=== PATIENT | female | born 1950 | race Caucasian/White ===

== ENCOUNTER 2023-11-30 02:38 | Emergency (ER) | payer MEDICARE, MEDICAID ==
[~2023-11-30] VITALS: Ht 175.3 cm; Wt 68.2 kg
[2023-11-30] MEDS ORDERED: haloperidol lactate 5mg/ml inj IM ONE (03:45)
[2023-11-30 03:48] LABS: BASOPHILS # (AUTO) 0.1 X10'3 (0-0.2); BASOPHILS % (AUTO) 0.9 % (0-1); EOSINOPHILS # (AUTO) 0.2 X10'3 (0-0.9); EOSINOPHILS % (AUTO) 2.2 % (0-6); HEMOGLOBIN 12.4 g/dl (12.0-16.0); LYMPHOCYTES # (AUTO) 2.7 X10'3 (1.1-4.8); LYMPHOCYTES % (AUTO) 23.6 % (21-51); MEAN CORPUSCULAR HEMOGLOBIN 30.8 PG (27.0-31.0); MEAN CORPUSCULAR HGB CONC 33.4 g/dL (33.0-36.5); MEAN CORPUSCULAR VOLUME 92.1 FL (78-98); MEAN PLATELET VOLUME 8.5 FL (7.4-10.4); MONOCYTES # (AUTO) 0.8 X10'3 (0-0.9); MONOCYTES % (AUTO) 6.7 % (2-12); NEUTROPHILS # (AUTO) 7.6 X10'3 (1.8-7.7); NEUTROPHILS % (AUTO) 66.6 % (42-75); PLATELET COUNT 224 X10'3 (140-440); RED BLOOD COUNT 4.02 X10'6 (4.20-5.60); RED CELL DISTRIBUTION WIDTH 12.9 % (11.5-14.5); WHITE BLOOD COUNT 11.5 X10'3 (4.5-11.0)
[2023-11-30 04:09] LABS: ALANINE AMINOTRANSFERASE 14 U/L (12-78); ALBUMIN/GLOBULIN RATIO 0.7 (1.1-1.5); ALKALINE PHOSPHATASE 84 IU/L (46-116); ANION GAP 10 (8-16); ASPARTATE AMINO TRANSFERASE 17 U/L (10-37); BILIRUBIN,TOTAL 0.5 MG/DL (0.1-1.0); BLOOD UREA NITROGEN 27 MG/DL (7-18); CALCIUM 8.7 MG/DL (8.5-10.1); CHLORIDE 99 MMOL/L (99-107); CREATININE 1.04 MG/DL (0.40-0.90); GLUCOSE 163 MG/DL (70-104); POTASSIUM 3.2 MMOL/L (3.5-5.1); SODIUM 137 MMOL/L (135-145); TOTAL CARBON DIOXIDE 28.1 MMOL/L (24-32); TOTAL PROTEIN 7.1 G/DL (6.4-8.2); eCRCL 49 ML/MIN; eGFR 52 ML/MIN
[2023-11-30 04:15] LABS: BILIRUBIN,URINE NEGATIVE (Neg); CLARITY,URINE CLOUDY (Clear); COLOR,URINE YELLOW (Yellow); GLUCOSE, URINE NEGATIVE (Neg); KETONES,URINE NEGATIVE (Neg); LEUKOCYTE ESTERASE ,URINE LARGE (Neg); NITRITES, URINE POSITIVE (Neg); OCCULT BLOOD,URINE MODERATE (Neg); PROTEIN,URINE 100 mg/dl (Neg); UROBILINOGEN,URINE 0.2 E.U/dL (0.2-1.0)
[2023-11-30 04:18] LABS: ETHANOL < 10 MG/DL (<10); THYROID STIMULATING HORMONE 1.89 ulU/ml (0.34-4.50)
[2023-11-30 04:26] LABS: URINE AMPHETAMINE SCREEN NEGATIVE (Neg); URINE BARBITUATE SCREEN NEGATIVE (Neg); URINE BENZODIAZEPINES SCREEN NEGATIVE (Neg); URINE CANNABINOID SCREEN NEGATIVE (Neg); URINE COCAINE SCREEN NEGATIVE (Neg); URINE METHADONE SCREEN NEGATIVE (Neg); URINE OPIATE SCREEN POSITIVE (Neg); URINE PHENCYCLIDINE SCREEN NEGATIVE (Neg)
[2023-11-30 04:30] LABS: UA COLLECTION TYPE OTHER
[2023-11-30 04:42] LABS: BACTERIA,URINE 4+ /HPF (Neg); WBC,URINE TNTC /HPF (0-4)
[2023-11-30 04:43] LABS: MUCUS STRANDS NONE SEEN /LPF (Neg); SQUAMOUS EPITHELIAL CELL,UR MODERATE /LPF (FEW); TRANSITIONAL EPI CELLS,URINE MODERATE /HPF
[2023-11-30 04:45] LABS: WBC CLUMPS,URINE MODERATE /HPF (NEGATIVE)
[2023-11-30] MEDS ORDERED: LidoCAINE 2% Topical Jelly 11mL syringe TOP ONE (05:05)
[2023-11-30] MEDS ORDERED: potassium Cl 20 mEq SR tablet PO STA (05:07)
[2023-11-30] MEDS ORDERED: GABA-530 PO (06:13)
[2023-11-30] MEDS ORDERED: FURO80TA87 PO (06:13)
[2023-11-30] MEDS ORDERED: BACL10TA2 PO (06:13)
[2023-11-30] MEDS ORDERED: DULO-31 PO (06:13)
[2023-11-30] MEDS ORDERED: METH1TAB81 PO (06:13)
[2023-11-30] MEDS ORDERED: AMLO10TA16 PO (06:13)
[2023-11-30] MEDS ORDERED: LORA-268 PO (06:13)
[2023-11-30] MEDS ORDERED: ATOR40TA PO (06:13)
[2023-11-30] MEDS ORDERED: LOPE-190 PO (06:57)
[2023-11-30] MEDS ORDERED: TRAM50TA2 PO (06:57)
[2023-11-30] MEDS ORDERED: ACET325T55 PO (06:57)
[2023-11-30] MEDS ORDERED: SENN-263 PO ×2 (06:57)
[2023-11-30] MEDS ORDERED: OXYC-658 PO (06:57)
[2023-11-30] MEDS ORDERED: LACT-237 PO (06:57)
[2023-11-30] MEDS ORDERED: MORP15TA60 PO (06:57)
[2023-11-30] MEDS ORDERED: QUET-1 PO (06:57)
[2023-11-30] MEDS ORDERED: BISA10SU11 RC (06:57)
[2023-11-30] MEDS ORDERED: POTA20PA40 PO (06:57)
[2023-11-30] MEDS ORDERED: NA P133E4 RC (06:57)
[2023-11-30] MEDS ORDERED: FLO0.4C PO (06:57)
[2023-11-30] MEDS ORDERED: magnesium hydroxide 30ml (MOM) UD suspension PO PRN (07:20)
[2023-11-30] MEDS ORDERED: non-formulary drug (Na Phos,M-B/Na Phos,Di-Ba* (Fleet's Enema*) 1 BOTTLE) PO PRN (07:35)
[2023-11-30] MEDS ORDERED: bisacodyl 10mg suppository rectal RC PRN (07:35)
[2023-11-30] MEDS ORDERED: loperamide 2mg capsule PO PRN (07:35)
[2023-11-30] MEDS: lactose-reduced food (Ensure Enlive) - 237ml bottle PO SCH ×2 (08:00→20:00)
[2023-11-30] MEDS: potassium Cl 20 mEq SR tablet PO SCH (08:00)
[2023-11-30] MEDS: gabapentin 100mg capsule PO SCH ×3 (08:51→20:12)
[2023-11-30] MEDS: atorvastatin 10mg tablet PO SCH (08:51)
[2023-11-30] MEDS: cephalexin 250mg capsule PO SCH ×2 (08:51→20:12)
[2023-11-30] MEDS: duloxetine 30mg CAPSULE.DR PO SCH (08:51)
[2023-11-30] MEDS: LORazepam 0.5 MG tablet PO PRN (10:03)
[2023-11-30] MEDS ORDERED: nicotine 21mg patch - 24 hr TD ONE (10:20)
[2023-11-30] MEDS: amLODIPine 5mg tablet PO SCH (10:38)
[2023-11-30] MEDS: baclofen 10mg tablet PO SCH ×2 (10:38→13:51)
[2023-11-30] MEDS: furosemide 40mg tablet PO SCH (10:38)
[2023-11-30] MEDS: NICOTINE POLACRILEX 2 MG LOZENGE BC PRN ×3 (10:38→16:28)
[2023-11-30] MEDS: methenamine hippurate 1gm tablet PO SCH (10:53)
[2023-11-30] MEDS: traMADol 50MG tablet PO PRN (11:08)
[2023-11-30] MEDS: oxyCODONE IR 5mg (immed. release) tablet PO PRN ×2 (12:02→18:45)
[2023-11-30] MEDS: tamsulosin 0.4mg capsule PO SCH (20:12)
[2023-11-30] MEDS: quetiapine 100mg tablet PO SCH (20:13)
[2023-12-01] MEDS: lactose-reduced food (Ensure Enlive) - 237ml bottle PO SCH ×2 (08:00→20:14)
[2023-12-01] MEDS: methenamine hippurate 1gm tablet PO SCH (08:00)
[2023-12-01] MEDS: morphine ER 15mg tablet PO PRN (09:07)
[2023-12-01] MEDS: LORazepam 0.5 MG tablet PO PRN (13:18)
[2023-12-01] MEDS: oxyCODONE IR 5mg (immed. release) tablet PO PRN ×3 (13:18→21:40)
[2023-12-01] MEDS: atorvastatin 10mg tablet PO SCH (13:19)
[2023-12-01] MEDS: furosemide 40mg tablet PO SCH (13:19)
[2023-12-01] MEDS: amLODIPine 5mg tablet PO SCH (13:20)
[2023-12-01] MEDS: potassium Cl 20 mEq SR tablet PO SCH (13:21)
[2023-12-01] MEDS: gabapentin 100mg capsule PO SCH ×3 (13:21→20:14)
[2023-12-01] MEDS: cephalexin 250mg capsule PO SCH ×2 (13:21→20:14)
[2023-12-01] MEDS: duloxetine 30mg CAPSULE.DR PO SCH (13:21)
[2023-12-01] MEDS: nicotine 21mg patch - 24 hr TD SCH (13:22)
[2023-12-01] MEDS: traMADol 50MG tablet PO PRN (15:44)
[2023-12-01] MEDS: tamsulosin 0.4mg capsule PO SCH (20:14)
[2023-12-01] MEDS: quetiapine 100mg tablet PO SCH (20:14)
[2023-12-02] MEDS: morphine ER 15mg tablet PO PRN ×2 (01:27→14:13)
[2023-12-02] MEDS: oxyCODONE IR 5mg (immed. release) tablet PO PRN ×3 (05:11→19:08)
[2023-12-02] MEDS: LORazepam 0.5 MG tablet PO PRN (06:16)
[2023-12-02] MEDS ORDERED: potassium Cl 20 mEq SR tablet PO ONE (08:00)
[2023-12-02] MEDS: methenamine hippurate 1gm tablet PO SCH (08:24)
[2023-12-02] MEDS: atorvastatin 10mg tablet PO SCH (08:24)
[2023-12-02] MEDS: furosemide 40mg tablet PO SCH (08:24)
[2023-12-02] MEDS: nicotine 21mg patch - 24 hr TD SCH (08:24)
[2023-12-02] MEDS: duloxetine 30mg CAPSULE.DR PO SCH (08:25)
[2023-12-02] MEDS: cephalexin 250mg capsule PO SCH ×2 (08:25→20:10)
[2023-12-02] MEDS: potassium Cl 20 mEq SR tablet PO SCH (08:25)
[2023-12-02] MEDS: gabapentin 100mg capsule PO SCH ×3 (08:25→20:10)
[2023-12-02] MEDS: amLODIPine 5mg tablet PO SCH (08:26)
[2023-12-02] MEDS: lactose-reduced food (Ensure Enlive) - 237ml bottle PO SCH ×2 (08:26→20:00)
[2023-12-02] MEDS: quetiapine 100mg tablet PO SCH (20:09)
[2023-12-02] MEDS: tamsulosin 0.4mg capsule PO SCH (20:10)
[2023-12-02 21:13] LABS: ALBUMIN 3.1 G/DL (3.4-5.0); ANION GAP 8 (8-16); BLOOD UREA NITROGEN 25 MG/DL (7-18); BUN/CREATININE RATIO 19.1 (10.0-20.0); CHLORIDE 99 MMOL/L (99-107); CREATININE 1.31 MG/DL (0.40-0.90); GLUCOSE 263 MG/DL (70-104); MAGNESIUM 2.1 MG/DL (1.5-2.4); POTASSIUM 3.5 MMOL/L (3.5-5.1); SODIUM 137 MMOL/L (135-145); TOTAL CARBON DIOXIDE 30.1 MMOL/L (24-32); eCRCL 39 ML/MIN; eGFR 40 ML/MIN
[2023-12-03] MEDS: morphine ER 15mg tablet PO PRN ×2 (03:47→21:44)
[2023-12-03] MEDS: oxyCODONE IR 5mg (immed. release) tablet PO PRN ×2 (05:41→11:15)
[2023-12-03] MEDS: cephalexin 250mg capsule PO SCH ×2 (07:52→21:44)
[2023-12-03] MEDS: gabapentin 100mg capsule PO SCH ×3 (07:52→21:44)
[2023-12-03] MEDS: potassium Cl 20 mEq SR tablet PO SCH (07:52)
[2023-12-03] MEDS: duloxetine 30mg CAPSULE.DR PO SCH (07:52)
[2023-12-03] MEDS: nicotine 21mg patch - 24 hr TD SCH (07:53)
[2023-12-03] MEDS: atorvastatin 10mg tablet PO SCH (07:57)
[2023-12-03] MEDS: furosemide 40mg tablet PO SCH (07:57)
[2023-12-03] MEDS: amLODIPine 5mg tablet PO SCH (08:00)
[2023-12-03] MEDS: lactose-reduced food (Ensure Enlive) - 237ml bottle PO SCH ×2 (08:04→20:00)
[2023-12-03] MEDS: methenamine hippurate 1gm tablet PO SCH (08:26)
[2023-12-03] MEDS: LORazepam 0.5 MG tablet PO PRN (11:14)
[2023-12-03 12:00] LABS: HCG SERUM QL NEGATIVE
[2023-12-03] MEDS: NICOTINE POLACRILEX 2 MG LOZENGE BC PRN (15:30)
[2023-12-03] MEDS: quetiapine 100mg tablet PO SCH (21:44)
[2023-12-03] MEDS: tamsulosin 0.4mg capsule PO SCH (21:45)
[2023-12-04] MEDS: cephalexin 250mg capsule PO SCH ×2 (08:00→20:04)
[2023-12-04] MEDS: lactose-reduced food (Ensure Enlive) - 237ml bottle PO SCH ×2 (08:00→19:42)
[2023-12-04] MEDS ORDERED: HYDROcodone/acetaminophen 5mg/325mg tablet PO ONE (08:50)
[2023-12-04] MEDS: gabapentin 100mg capsule PO SCH ×3 (10:12→20:04)
[2023-12-04] MEDS: furosemide 40mg tablet PO SCH (10:12)
[2023-12-04] MEDS: amLODIPine 5mg tablet PO SCH (10:12)
[2023-12-04] MEDS: potassium Cl 20 mEq SR tablet PO SCH (10:14)
[2023-12-04] MEDS: methenamine hippurate 1gm tablet PO SCH (10:15)
[2023-12-04] MEDS: duloxetine 30mg CAPSULE.DR PO SCH (10:15)
[2023-12-04] MEDS ORDERED: atorvastatin 20mg tablet PO SCH (10:25)
[2023-12-04] MEDS: nicotine 21mg patch - 24 hr TD SCH (10:40)
[2023-12-04] MEDS: atorvastatin 20mg tablet PO SCH (10:41)
[2023-12-04] MEDS: oxyCODONE IR 5mg (immed. release) tablet PO PRN ×2 (15:25→23:15)
[2023-12-04] MEDS: quetiapine 100mg tablet PO SCH (20:04)
[2023-12-04] MEDS: tamsulosin 0.4mg capsule PO SCH (20:04)
[2023-12-04] MEDS: LORazepam 0.5 MG tablet PO PRN (20:04)
[2023-12-04] MEDS: morphine ER 15mg tablet PO PRN (20:04)
[2023-12-04] MEDS ORDERED: diphenhydrAMINE 25mg capsule PO ONE (21:10)
[2023-12-04] MEDS: baclofen 10mg tablet PO PRN (21:38)
[2023-12-04] MEDS: acetaminophen 325mg tablet PO PRN (23:14)
[2023-12-05] MEDS: acetaminophen 325mg tablet PO PRN (06:08)
[2023-12-05] MEDS: oxyCODONE IR 5mg (immed. release) tablet PO PRN ×3 (06:09→19:15)
[2023-12-05] MEDS: LORazepam 0.5 MG tablet PO PRN (06:09)
[2023-12-05] MEDS: duloxetine 30mg CAPSULE.DR PO SCH (09:25)
[2023-12-05] MEDS: potassium Cl 20 mEq SR tablet PO SCH (09:25)
[2023-12-05] MEDS: gabapentin 100mg capsule PO SCH ×3 (09:26→20:06)
[2023-12-05] MEDS: methenamine hippurate 1gm tablet PO SCH (09:26)
[2023-12-05] MEDS: amLODIPine 5mg tablet PO SCH (09:26)
[2023-12-05] MEDS: atorvastatin 20mg tablet PO SCH (09:26)
[2023-12-05] MEDS: cephalexin 250mg capsule PO SCH ×2 (09:26→19:28)
[2023-12-05] MEDS: furosemide 40mg tablet PO SCH (09:27)
[2023-12-05] MEDS: nicotine 21mg patch - 24 hr TD SCH (09:28)
[2023-12-05] MEDS: lactose-reduced food (Ensure Enlive) - 237ml bottle PO SCH ×2 (09:30→20:30)
[2023-12-05] MEDS: sennosides 8.6mg tablet PO PRN (19:29)
[2023-12-05] MEDS: tamsulosin 0.4mg capsule PO SCH (20:06)
[2023-12-05] MEDS: quetiapine 100mg tablet PO SCH (20:07)
[2023-12-05] MEDS: baclofen 10mg tablet PO PRN (23:02)
[2023-12-06] MEDS: morphine ER 15mg tablet PO PRN (02:23)
[2023-12-06] MEDS: atorvastatin 20mg tablet PO SCH (07:53)
[2023-12-06] MEDS: gabapentin 100mg capsule PO SCH ×3 (07:53→20:02)
[2023-12-06] MEDS: amLODIPine 5mg tablet PO SCH (07:59)
[2023-12-06] MEDS: duloxetine 30mg CAPSULE.DR PO SCH (08:00)
[2023-12-06] MEDS: methenamine hippurate 1gm tablet PO SCH (08:00)
[2023-12-06] MEDS: cephalexin 250mg capsule PO SCH ×2 (08:00→20:00)
[2023-12-06] MEDS: potassium Cl 20 mEq SR tablet PO SCH (08:00)
[2023-12-06] MEDS: furosemide 40mg tablet PO SCH (08:00)
[2023-12-06] MEDS: nicotine 21mg patch - 24 hr TD SCH (08:17)
[2023-12-06] MEDS: lactose-reduced food (Ensure Enlive) - 237ml bottle PO SCH ×2 (08:45→20:00)
[2023-12-06] MEDS: oxyCODONE IR 5mg (immed. release) tablet PO PRN ×2 (10:25→14:26)
[2023-12-06] MEDS: polyethylene glycol 3350 17gm powd pack PO SCH (20:00)
[2023-12-06] MEDS: LORazepam 0.5 MG tablet PO PRN (20:03)
[2023-12-06] MEDS: traMADol 50MG tablet PO PRN (20:04)
[2023-12-06] MEDS: quetiapine 100mg tablet PO SCH ×2 (20:08→21:01)
[2023-12-06] MEDS: tamsulosin 0.4mg capsule PO SCH ×2 (20:08→21:01)
[2023-12-07] MEDS: potassium Cl 20 mEq SR tablet PO SCH (08:00)
[2023-12-07] MEDS: atorvastatin 20mg tablet PO SCH (08:00)
[2023-12-07] MEDS: amLODIPine 5mg tablet PO SCH (08:00)
[2023-12-07] MEDS: gabapentin 100mg capsule PO SCH ×3 (08:06→20:03)
[2023-12-07] MEDS: oxyCODONE IR 5mg (immed. release) tablet PO PRN ×3 (08:06→19:37)
[2023-12-07] MEDS: duloxetine 30mg CAPSULE.DR PO SCH (08:07)
[2023-12-07] MEDS: cephalexin 250mg capsule PO SCH (08:07)
[2023-12-07] MEDS: nicotine 21mg patch - 24 hr TD SCH (08:16)
[2023-12-07] MEDS: lactose-reduced food (Ensure Enlive) - 237ml bottle PO SCH ×2 (08:25→19:44)
[2023-12-07] MEDS: baclofen 10mg tablet PO PRN (10:45)
[2023-12-07] MEDS: furosemide 40mg tablet PO SCH (10:45)
[2023-12-07] MEDS: methenamine hippurate 1gm tablet PO SCH (10:45)
[2023-12-07] MEDS: sennosides 8.6mg tablet PO PRN (12:39)
[2023-12-07] MEDS: tamsulosin 0.4mg capsule PO SCH (20:03)
[2023-12-07] MEDS: quetiapine 100mg tablet PO SCH (20:03)
[2023-12-07] MEDS: polyethylene glycol 3350 17gm powd pack PO SCH (20:03)
[2023-12-07] MEDS: morphine ER 15mg tablet PO PRN (22:46)
[2023-12-08] MEDS: oxyCODONE IR 5mg (immed. release) tablet PO PRN ×2 (02:39→13:51)
[2023-12-08 06:01] VITALS: BP 105/61; PULSE 68; O2SAT 95
[2023-12-08] MEDS: potassium Cl 20 mEq SR tablet PO SCH (08:00)
[2023-12-08] MEDS: atorvastatin 20mg tablet PO SCH (08:00)
[2023-12-08] MEDS: lactose-reduced food (Ensure Enlive) - 237ml bottle PO SCH (08:00)
[2023-12-08] MEDS: duloxetine 30mg CAPSULE.DR PO SCH (08:00)
[2023-12-08] MEDS: methenamine hippurate 1gm tablet PO SCH (08:00)
[2023-12-08] MEDS: gabapentin 100mg capsule PO SCH ×2 (08:00→13:51)
[2023-12-08] MEDS: amLODIPine 5mg tablet PO SCH (08:00)
[2023-12-08] MEDS: furosemide 40mg tablet PO SCH (08:00)
[2023-12-08] MEDS: traMADol 50MG tablet PO PRN (08:10)
[2023-12-08] MEDS: nicotine 21mg patch - 24 hr TD SCH ×2 (08:13→09:54)
[2023-12-08 13:51] VITALS: RESP 16
[2023-12-08 17:30] VITALS: TEMP 97.6
== END 2023-12-08 20:01 | disposition home or self-care (01) ==
LOC: ER 02:40
DX: R45.851 Suicidal ideations (principal); Z20.822 Contact with and (suspected) exposure to COVID-19; N39.0 Urinary tract infection, site not specified; E87.6 Hypokalemia; F32.A Depression, unspecified; Z86.73 Personal history of transient ischemic attack (TIA), and cerebral infarction without residual deficits
CPT/HCPCS: 36415; 80048; 80053; 80305; 80320; 81001; 83735; 84443; 84703; 85025; 87811; 96372; 99285; J1630